=== PATIENT | male | born 1980 | race Caucasian/White ===

== ENCOUNTER 2017-05-01 03:40 | Emergency (ER) | payer OTHER ==
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
[~2017-05-01 03:40] MED LIST: ALBUTEROL17 GM NEB; IBUPROFEN800 MG PO; KEFLEX500 M1 PO; KEFLEX500 MG PO; KETOPROFEN PO; MOTRIN400 MG PO; NO MEDICATIONS; PENICILLIN V P500 MG PO; PHENERGAN DM1 ML PO; PREDNISONE PO; ULTRAM PO; VIBRAMYCIN100 M1 PO; VICODIN 5/1 TAB 5/50 PO
== END 2017-05-01 05:30 | disposition home or self-care (01) ==
LOC: CED 03:40
DX: S00.83XA Contusion of other part of head, initial encounter (principal); S20.229A Contusion of unspecified back wall of thorax, initial encounter; F17.210 Nicotine dependence, cigarettes, uncomplicated; Y08.02XA Assault by strike by baseball bat, initial encounter
CPT/HCPCS: 70450; 72040; 72072; 99284

== ENCOUNTER 2017-06-21 14:16 | Emergency (ER) | payer OTHER ==
[~2017-06-21] VITALS: Ht 182.9 cm; Wt 68.9 kg
--- NOTE | ~2017-06-21 | CO ---
Unit #: [id number] #: [id number] Patient: CANELO URBANO [id number] [facility] [address] [place], [place] [address] [id number] I MR#: [id number] NAME: CANELO URBANO ROOM: 567 Age: 36 Sex: M Admission Date: 06/21/2017 : 1980 Attending Physician: Derrick Leavitt M.D. Primary Care Physician: Primary Care Physician No Consultation Date: 06/22/2017 CONSULTATION REPORT HISTORY OF PRESENT ILLNESS Mr. Diaz is a 36-year-old white male, seen in room 567, bed 1, on 06/22/2017 at [facility]. The patient was admitted in altered mental state. The patient dressed casually, lying comfortably in bed, able to answer questions appropriately. The patient admitted using methamphetamine and opioids. The patient was admitted with heroin overdose. The patient denied any suicidal ideation or any suicide attempt. The patient reported it was accidentally, the patient was given Narcan. In the emergency room, the patient's CPK was 209, potassium 3.4 at the time of admission. The patient denied any current suicidal or homicidal ideation. Denied any psychotic symptom. The patient's vital signs; temperature 98.6, pulse 70, respirations 17, blood pressure 111/66, and oxygen saturation 95%. PAST PSYCHIATRIC HISTORY Remarkable for history of substance abuse. No history of depression or suicide attempt. MEDICAL HISTORY Unremarkable for any chronic medical condition. MEDICATION HISTORY None. FAMILY HISTORY AND SOCIAL HISTORY The patient reports that he has a good support system. No history of abuse. History of substance abuse. The patient was treated at [facility] for substance abuse. Last admission was in 2014, admitted using methamphetamine and heroin. REVIEW OF SYSTEMS Complete review of systems is unremarkable except as mentioned above. MENTAL STATUS EXAMINATION Vital signs; please see above. General appearance; the patient dressed casually. Lying comfortably in bed. Attention span and concentration, fair. Speech, regular rate and coherent. Oriented in time, place, and person. Mood and affect, labile. Thought process, coherent. Thought content, the patient denied any thoughts of harming self or others. Recent and remote memory, fair. Language, intact. Fund of knowledge, fair to slightly impaired. Insight and judgment, fair to slightly impaired. DIAGNOSES Psychiatric: Opioid use disorder, severe, F11.20; amphetamine use Unit #: [id number] #: [id number] Patient: CANELO URBANO R disorder, severe, F15.20. Secondary diagnosis: Deferred. Medical diagnosis: Please refer to H and P. Stressors: Psychosocial stressor. ASSESSMENT AND PLAN 1. Supportive psychotherapy and psychoeducation provided to the patient. 2. Educated about benefits and side effects of medication and course and prognosis of illness. 3. Recommending the patient to follow up in outpatient program, CD-IOP program at [facility] upon discharge. The patient was given crisis line #[phone]. Please feel free to call if any question, telephone #[phone]. Dictated by... Eddie Damon M.D. LEAH/samia TD: 06/23/2017 16:34 JOB #: [id number] CONSULTATION REPORT Page 1 of 1 X Eddie Damon MD X CONSULTATION REPORT
--- NOTE | ~2017-06-21 | CR72 ---
[facility] A Service of [facility] & [facility] RADIOLOGY TEXT RESULTS PATIENT: CANELO URBANO LOCATION: [facility] [address] : [birth year] UNIT #: [id number] AGE: [address]: Derrick Leavitt MD SEX: M ORDER DR: [id number] [facility] [address] [place], [place] [address] [id number] I MR#: [id number] Acc #: [id number] NAME: CANELO URBANO : 1980 SEX: M STUDY DATE/TIME: 06/21/2017 18:56 UNIT: [facility] ROOM: [facility] STUDY DESCRIPTION: CR Chest Single View Portable Attending Physician: Barb Gerardo M.D. Ordering Physician: Brayden Vigil M.D. Primary Care Physician: Primary Care Physician No MEDICAL IMAGING REPORT This report is preliminary unless electronic signature is present EXAM AP radiograph of the chest HISTORY Altered mental status. Not communicative. Heroin overdose. FINDINGS AP radiograph of the chest is presented. Comparison 10/13/2013. No acute bony abnormality. The heart and mediastinum are normal in size and contour. Lung volumes are low, with some bronchovascular crowding. Left lung otherwise clear. There are some subtle patchy densities at the right lung base, just above the diaphragm. These could be atelectasis, given the low lung volumes. Given patient's stated history, correlate with any clinical concern for aspiration. There is no dense airspace disease, pleural effusion, pneumothorax or suspicious nodule. Dictated by... Juan Wilkinson M.D. THIS IS AN ELECTRONICALLY VERIFIED REPORT Juan Wilkinson M.D. at 06/22/2017 3:16 PM OANH/mark TD: 06/21/2017 23:48 JOB #: [id number] MEDICAL IMAGING REPORT Page 1 of 1 COPY
--- NOTE | ~2017-06-21 | DS ---
Unit #: [id number] #: [id number] Patient: CANELO URBANO [address]26 [address] [address] [id number] I MR#: [id number] NAME: CANELO URBANO ROOM: 567 Age: 36 Sex: M Admission Date: 06/21/2017 : 1980 Discharge Date: 06/22/2017 Attending Physician: Derrick Leavitt M.D. Primary Care Physician: No Primary Care Physician DISCHARGE SUMMARY PRIMARY DIAGNOSIS Heroin overdose. SECONDARY DIAGNOSES 1. Methamphetamine abuse. 2. Nicotine abuse. 3. Tobacco abuse. 4. Hypokalemia, mild, resolved. HOSPITAL COURSE The patient was placed in observation status for arrival in the emergency room with heroin overdose requiring Narcan. The patient was treated conservatively and improved over the next 12 hours. He could not remember any of the events that brought him in to the emergency room but he did admit to using heroin and amphetamines. The patient is not interested in going to inpatient drug treatment at this time. He refuses inpatient Our evaluation. He was seen in consultation with Dr. Damon with psychiatry. He is provided a list of outpatient drug abuse resources and is advised to follow up with Our outpatient chemical dependency program in one to two days. The patient was counseled extensively. DISCHARGE DISPOSITION To home. DISCHARGE STATUS Stable. DISCHARGE ACTIVITY Ad shaila. DISCHARGE DIET Unrestricted. DISCHARGE MEDICATIONS Gabapentin - resume home dose. DISCHARGE FOLLOWUP With Our in one to two days. Unit #: [id number] #: [id number] Patient: CANELO URBANO Dictated by... Tylor Love/jorje TD: 06/24/2017 08:10 JOB #: [id number] DISCHARGE SUMMARY Page 1 of 1 X Derrick Leavitt MD X DISCHARGE SUMMARY
--- NOTE | ~2017-06-21 | HP ---
Unit #: [id number] #: [id number] Patient: CANELO URBANO [id number] [address] [place], [place] [address] [id number] I MR#: [id number] NAME: CANELO URBANO. ROOM: 56 Age: 36 Sex: M Admission Date: 06/21/2017 : 1980 Attending Physician: Barb Gerardo M.D. HISTORY AND PHYSICAL CHIEF COMPLAINT Altered mental status, heroin overdose. HISTORY OF PRESENT ILLNESS The patient is a 36-year-old male with a past medical history of polysubstance abuse who presented to the emergency department for evaluation of the above. History is obtained from chart review and discussion with ER staff due to the patient's altered mental status. The patient was apparently last seen yesterday when he was "tweaking out." He had been up for four to five days using methamphetamine. He apparently used heroin as well. There is no indication that he was suicidal. He received 8 mg of Narcan prior to arrival. He has received an additional 4 mg in the emergency department. He is still somnolent. Laboratory is notable for a urine toxicology screen being positive for amphetamine and opiates. CPK is 209 and potassium is 3.4. He is being admitted to [facility] for evaluation and further treatment. PAST MEDICAL HISTORY Admission to [facility] February 26 through March 02, 2015, for polysubstance abuse. PAST SURGICAL HISTORY Finger and arm surgery. SOCIAL HISTORY The patient has a history of polysubstance abuse. He also is a smoker. FAMILY HISTORY Noncontributory. ALLERGIES No known allergies. HOME MEDICATIONS 1. Gabapentin. 2. Prozac. 3. Remeron. 4. Vivitrol. Home medications will need to be reviewed and verified. REVIEW OF SYSTEMS Unit #: [id number] #: [id number] Patient: CANELO URBANO A complete review of systems is unobtainable due to altered mental status. PHYSICAL EXAMINATION VITAL SIGNS: Temperature is 97.7, pulse 88, respirations 16, blood pressure 124/82, and oxygen saturation is 96% on room air. GENERAL: Patient is lethargic. HEENT: Head is atraumatic. Mucous membranes are moist. NECK: Supple. Trachea is midline. CARDIOVASCULAR: Regular rate and rhythm. LUNGS: Clear to auscultation bilaterally with no increased work of breathing. ABDOMEN: Soft and nontender with bowel sounds present in all four quadrants. EXTREMITIES: Nontender with no pedal edema. NEUROLOGIC: Patient is lethargic. He was moving all extremities. He is not following commands. PSYCHIATRIC: Unable to assess. SKIN: Skin of examined areas is warm and dry. DIAGNOSTIC STUDIES LABORATORY: Comprehensive metabolic panel notable for potassium of 3.4 and AST and ALT are 142 and 115, respectively. Tylenol, salicylate, and alcohol levels are negative. CPK is 209. Urine toxicology screen positive for amphetamine and opiates. Urinalysis notable for 2+ protein and 1+ blood with 0-2 red blood cells. Complete blood count notable for hemoglobin and hematocrit of 12.8 and 36.8, respectively. ASSESSMENT The patient is a 36-year-old male with: 1. Altered mental status secondary to #2 and #3. 2. Heroin overdose, unintentional. 3. Polysubstance abuse with toxicology screen positive for amphetamine and opiates. 4. Hypokalemia. 5. Transaminitis. 6. Tobacco abuse. PLAN 1. Admit for observation to intermediate level. 2. Normal saline at 150 mL/hour. 3. N.p.o. until awake. 4. Fall precautions. 5. Neuro checks. 6. TSH, B12, and folate. 7. Hepatitis panel and HIV. 8. Consult Dr. Damon regarding polysubstance abuse. 9. Check magnesium level. 10. Potassium/magnesium protocol. 11. Chest x-ray is not done. 12. Repeat labs in the morning including CPK and magnesium. 13. SCDs for DVT prophylaxis. 14. Additional workup and consultants based on above. 1. Dictated by Barb Gerardo M.D. AW/am Unit #: [id number] #: [id number] Patient: CANELO URBANO TD: 06/21/2017 22:16 JOB #: [id number] HISTORY AND PHYSICAL Page 1 of 1 X Barb Gerardo MD X HISTORY AND PHYSICAL
[2017-06-21 17:21] LABS: URINE SOURCE CLEAN CATCH
[2017-06-21 17:29] LABS: URINE APPEARANCE CLEAR; URINE BILIRUBIN NEG (NEG); URINE BLOOD 1+ (NEG); URINE COLOR YELLOW; URINE GLUCOSE NEG (NEG); URINE KETONE NEG (NEG); URINE LEUKOCYTE ESTERASE NEG (NEG); URINE NITRATE NEG (NEG); URINE PH 5.5 (5-8); URINE PROTEIN 2+ (NEG); URINE SPECIFIC GRAVITY 1.019 (1.003-1.035); URINE UROBILINOGEN 0.2 MG/DL (NEG)
[2017-06-21 17:30] LABS: BASOPHIL% 0.5 % (0-2.5); EOSINOPHIL# 0.1 X10e3 (0-0.7); EOSINOPHIL% 0.6 % (0.0-7.0); HEMATOCRIT 36.8 % (38.0-50.0); HEMOGLOBIN 12.8 gm/dL (13.0-16.0); LYMPHOCYTE# 1.8 X10e3 (1.0-3.5); LYMPHOCYTE% 18.3 % (17.0-45.0); MEAN CELL VOLUME 86.5 FL (83-96); MEAN CORPUSCULAR HEMOGLOBIN 30.1 PG (28-34); MEAN CORPUSCULAR HGB CONC 34.8 g/dL (30-36); MEAN PLATELET VOLUME 7.8 FL (6.5-11.5); MONOCYTE# 0.5 X10e3 (0-1.0); MONOCYTE% 5.5 % (3.0-12.0); NEUTROPHIL# 7.5 X10e3 (1.5-7.1); NEUTROPHIL% 75.1 % (40-75); PLATELET COUNT 204 X10e3 (140-420); RED BLOOD COUNT 4.26 X10e (3.90-5.60); RED CELL DISTRIBUTION WIDTH 13.2 % (11.0-15.5)
[2017-06-21 17:33] LABS: URBCS1 AUWI 0-2 /[HPF] (0-2); URINE BACTERIA AUWI NEG (NEGATIVE); URINE SQUAMOUS EPITHELIAL CELL OCC /[HPF]
[2017-06-21 17:36] LABS: DIFF IND NO
[2017-06-21 17:37] LABS: CULTURE INDICATED? NO
[2017-06-21 17:38] LABS: AMPHETAMINE POS (NEG); BARBITURATES NEG (NEG); BENZODIAZEPINES NEG (NEG); COCAINE NEG (NEG); MARIJUANA NEG (NEG); OPIATES POS (NEG); TRICYCLIC ANTIDEPRESSANTS NEG (NEG); U METHADONE NEG (NEG)
[2017-06-21 17:48] LABS: ACETAMINOPHEN <10 ug/mL; ALBUMIN SERUM 3.6 g/dL (3.5-5.0); ALCOHOL BLOOD <5 mg/dL (0); ALKALINE PHOSPHATASE 68 U/L (32-92); ALT (SGPT) 115 U/L (10-40); AST (SGOT) 142 U/L (10-42); BILIRUBIN, DIRECT 0.1 mg/dL (0.0-0.2); BILIRUBIN,INDIRECT 0.7 mg/dL (0.0-0.9); BILIRUBIN,TOTAL 0.8 mg/dL (0.2-2.0); BLOOD UREA NITROGEN 12 mg/dL (9-23); CALCIUM SERUM 8.3 mg/dL (8.4-10.2); CARBON DIOXIDE 31 mmol/L (22-31); CHLORIDE 105 mmol/L (100-111); CREATININE SERUM 0.8 mg/dL (0.6-1.4); GLUCOSE FASTING 99 mg/dL (70-110); POTASSIUM 3.4 mmol/L (3.5-5.1); PROTEIN TOTAL SERUM 6.6 g/dL (6.0-8.3); SALICYLATE <4.0 mg/dL; SODIUM 143 mmol/L (135-145)
[2017-06-21 19:57] LABS: FOLATE (FOLIC ACID) 14.8 ng/mL (>5.8)
[2017-06-21] MEDS ORDERED: NEURONTIN PO (23:23)
[2017-06-22 05:22] LABS: BASOPHIL# 0.1 X10e3 (0-0.3); BASOPHIL% 0.5 % (0-2.5); EOSINOPHIL# 0.1 X10e3 (0-0.7); HEMATOCRIT 37.4 % (38.0-50.0); HEMOGLOBIN 12.8 gm/dL (13.0-16.0); LYMPHOCYTE% 19.6 % (17.0-45.0); MEAN CELL VOLUME 87.8 FL (83-96); MEAN CORPUSCULAR HGB CONC 34.2 g/dL (30-36); MONOCYTE# 0.6 X10e3 (0-1.0); MONOCYTE% 6.2 % (3.0-12.0); NEUTROPHIL# 7.5 X10e3 (1.5-7.1); NEUTROPHIL% 72.7 % (40-75); PLATELET COUNT 226 X10e3 (140-420); RED BLOOD COUNT 4.26 X10e (3.90-5.60); RED CELL DISTRIBUTION WIDTH 13.3 % (11.0-15.5); WHITE BLOOD COUNT 10.4 X10e3 (4.0-10.5)
[2017-06-22 05:23] LABS: DIFF IND NO
[2017-06-22 06:10] LABS: ALBUMIN SERUM 3.1 g/dL (3.5-5.0); BILIRUBIN,TOTAL 0.4 mg/dL (0.2-2.0); BUN/CREATININE RATIO 12.22; CALCIUM SERUM 8.1 mg/dL (8.4-10.2); CREATININE SERUM 0.9 mg/dL (0.6-1.4); GLOM FILT RATE Estimated 109.5 mL/min (>60); MAGNESIUM 1.9 mg/dL (1.6-3.0); POTASSIUM 3.7 mmol/L (3.5-5.1); PROTEIN TOTAL SERUM 5.8 g/dL (6.0-8.3)
[2017-06-25 21:09] LABS: HA AB IGM (HEPPAN) Reactive (Nonreactive); HB CORE AB IGM (HEPPAN) Nonreactive (Nonreactive); HB S AG (HEPPAN) Nonreactive (Nonreactive); HEP C AB (HEPPAN) Reactive (Nonreactive)
== END 2017-06-22 15:16 | disposition home or self-care (01) ==
LOC: CED 14:16 → C5C 18:30 → CEDOF 18:30 → CED 19:39 → CEDOF 19:39 → C5C 21:31 → CEDOF 21:31 → C5C 06-22 06:25
PROVIDERS: Emergency Medicine; Specialist
DX: T40.1X1A Poisoning by heroin, accidental (unintentional), initial encounter (principal); F19.10 Other psychoactive substance abuse, uncomplicated; E87.6 Hypokalemia; R74.0 Nonspecific elevation of levels of transaminase and lactic acid dehydrogenase [LDH]; F17.200 Nicotine dependence, unspecified, uncomplicated; Z79.899 Other long term (current) drug therapy; Z98.890 Other specified postprocedural states
CPT/HCPCS: 36415; 71010; 80048; 80053; 80074; 80076; 80307; 81003; 82550; 82607; 82746; 82947; 83735; 84443; 85025; 87522; 87806; 94760; 96374; 96375; 96376; 99285; G0378; G0480; J2310; J3475